=== PATIENT | male | born 1955 | race African-American/Black ===

== ENCOUNTER → 2017-02-21 | Outpatient (CLI) | payer BC, OTHER | LOC: HYPER 07:04 | DX: I87.313 Chronic venous hypertension (idiopathic) with ulcer of bilateral lower extremity (principal); E11.622 Type 2 diabetes mellitus with other skin ulcer; L97.811 Non-pressure chronic ulcer of other part of right lower leg limited to breakdown of skin; L97.821 Non-pressure chronic ulcer of other part of left lower leg limited to breakdown of skin; I89.0 Lymphedema, not elsewhere classified; R60.0 Localized edema; I25.10 Atherosclerotic heart disease of native coronary artery without angina pectoris; E78.5 Hyperlipidemia, unspecified; E11.40 Type 2 diabetes mellitus with diabetic neuropathy, unspecified; E11.42 Type 2 diabetes mellitus with diabetic polyneuropathy; M06.9 Rheumatoid arthritis, unspecified; M19.90 Unspecified osteoarthritis, unspecified site; Z86.14 Personal history of Methicillin resistant Staphylococcus aureus infection ==

== ENCOUNTER → 2017-03-07 | Outpatient (CLI) | payer BC, OTHER | LOC: HYPER 07:08 | DX: E11.622 Type 2 diabetes mellitus with other skin ulcer (principal); I87.313 Chronic venous hypertension (idiopathic) with ulcer of bilateral lower extremity; L97.821 Non-pressure chronic ulcer of other part of left lower leg limited to breakdown of skin; L97.811 Non-pressure chronic ulcer of other part of right lower leg limited to breakdown of skin; I89.0 Lymphedema, not elsewhere classified; I25.10 Atherosclerotic heart disease of native coronary artery without angina pectoris; E78.5 Hyperlipidemia, unspecified; E11.40 Type 2 diabetes mellitus with diabetic neuropathy, unspecified; Z86.14 Personal history of Methicillin resistant Staphylococcus aureus infection; M06.9 Rheumatoid arthritis, unspecified; M19.90 Unspecified osteoarthritis, unspecified site ==

== ENCOUNTER 2017-03-28 06:41 | Inpatient (IN) | payer BC, OTHER ==
[~2017-03-28] VITALS: Ht 190.5 cm; Wt 121.1 kg
--- NOTE | ~2017-03-28 | HC ---
[facility] [place] [address] CONSULTATION Name: MARIA ELENA SANTOS [facility] Room #: 441-P ADM IN M.R.#: [id number] Admission: 03/28/17 Attend Phys: Izabella Amaya Discharge: Date of : 59 Report #: [id number] THIS REPORT FOR: //name// CC: Izabella Hickey DATE OF SERVICE: 03/29/2017 PERSONAL PHYSICIAN: Dr. Milo Galaviz. CHIEF COMPLAINT: Right lower extremity ulceration with cellulitis. HISTORY OF PRESENT ILLNESS: This is a 61-year-old black male who I have been following in the wound center for the past several weeks for chronic venous stasis ulcer over 4 years duration. The patient was initially started under my care approximately 2 months ago when he was at [facility]. The patient was seen approximately 3 weeks ago in the wound clinic and the ulceration on his right leg was doing markedly better. Unfortunately, the patient states in the past week, he noticed increased swelling, redness, warmth and pain in the ulceration. The patient did not contact our office to let us know that this was occurring. The patient states that he just continued to do the dressing changes as directed and showed up in the clinic yesterday afternoon with a cellulitic right leg, exquisitely tender and swollen. The patient was admitted from the clinic to the hospital for IV antibiotics, aggressive compression and elevation of the leg. PAST MEDICAL HISTORY: Significant for: 1. Chronic ulceration of the right lower extremity. 2. Chronic venous insufficiency. 3. History of MRSA infection. 4. History of pancreatitis, hypertension, hernia, gastroesophageal reflux disease, peripheral neuropathy. DRUG ALLERGIES: NEOMYCIN. CURRENT MEDICATIONS: Multiple, I reviewed the patient's medication list. SOCIAL HISTORY: The patient has never smoked. Drank heavily up until approximately 7 years ago. FAMILY HISTORY: Not pertinent to current medical condition. REVIEW OF SYSTEMS: CONSTITUTIONAL: The patient denies fevers, but has had chills over the past 2 to 3 days. [facility] [address] [place] [address] CONSULTATION Name: MARIA ELENA SANTOS [facility] Room #: 441-[facility] IN .R.#: [id number] Admission: 03/28/17 Attend Phys: Izabella Amaya Discharge: Date of : 59 Report #: [id number] NEUROLOGIC: The patient overall has generalized weakness, but no isolated weakness in arms or legs. EYES: No complaints. ENT: No complaints. CARDIAC: The patient denies chest pain; palpitations but has chronic lower extremity edema, increased over the past several days. RESPIRATORY: The patient denies shortness breath, cough or wheezes. GASTROINTESTINAL: The patient denies nausea, vomiting, but has decreased appetite. GENITOURINARY: The patient denies urgency or frequency. MUSCULOSKELETAL: The patient has pain in his right lower extremity. SKIN: There is chronic ulceration, right lower extremity consistent with cellulitis. PHYSICAL EXAMINATION: VITAL SIGNS: T-max 36.9, pulse 68, respirations 20, BP 141/63. GENERAL: This is an alert and oriented x 3, pleasant black male who is in [id number]-pu-[id number] distress secondary to pain. HEENT: Normocephalic, atraumatic. Mucous membranes are moist. Pupils are round. Sclerae white. NECK: Without JVD or masses. BACK: Nontender. LUNGS: Clear. HEART: Regular, without murmur. ABDOMEN: Soft, nontender. EXTREMITIES: The patient has 4+ edema in the right lower extremity with a near circumferential ulceration on his right lower extremity just above the ankle with a significant amount of brownish tran slough and minimal granulation tissue. The wound itself has moderate foul odor and is exquisitely tender to palpation. Distal pulses are faint, but this is diminished secondary to the edema. Linda-ulcer itself has increased erythema, warmth and tenderness consistent with cellulitis and fairly significant serosanguineous drainage with mild odor. Evaluation of left lower extremity reveals 2+ edema without any open ulcerations. Bilateral heels are intact. NEUROLOGIC: Cranial nerves 2-12 are grossly intact. Motor and sensory grossly intact. LABORATORY DATA: White count 5.8, hemoglobin 10.7. Albumin 3.0. IMPRESSION: 1. Chronic ulceration, right lower extremity with cellulitis. 2. Chronic venous insufficiency. 3. Chronic bilateral lower extremity edema, right greater than left. 4. Hypertension. 5. Generalized debility. 6. Protein calorie malnutrition -- mild with albumin of 3.0. [address] [address] CONSULTATION Name: MARIA ELENA SANTOS [facility] Room #: 441-P [facility] IN M.R.#: [id number] Admission: 03/28/17 Attend Phys: Izabella Amaya Discharge: Date of : 59 Report #: [id number] PLAN: The patient was admitted for IV antibiotics, IV pain medicines and wound care. I have talked to the patient about doing pulse lavage. He says he would be willing to try that in the next couple of days once the initial pain has resolved. The patient is refusing any type of surgical debridement at this time. We will make sure he maximizes his oral supplementation of protein for healing. We will also consult Infectious Disease for IV antibiotics management as well as consult Physical and Occupational therapy for strengthening. We will continue to follow the patient, continue all his other current medications. By: 1849 0825 Caden Hickey MD /nt
--- NOTE | ~2017-03-28 | HC ---
[facility] [place] [address] CONSULTATION Name: MARIA ELENA SANTOS [facility] Room #: 441-P [facility] IN M.R.#: [id number] Admission: 03/28/17 Attend Phys: Izabella Amaya Discharge: Date of : 59 Report #: [id number] THIS REPORT FOR: //name// CC: Izabella Hickey DATE OF SERVICE: 03/28/2017 INFECTIOUS DISEASE CONSULTATION REASON FOR CONSULTATION: I was asked to evaluate concerning right lower extremity venous stasis ulcer and infection. HISTORY OF PRESENT ILLNESS: The patient was a 61-year-old with history of venous stasis disease, chronic lymphedema with progressive wounds to his right lower extremity. The patient had been hospitalized about 6 weeks ago where he received a prolong course of IV and oral antibiotic therapy along with wound care. After discharge, his legs begun to swell again and was uncontrolled as far as his wound to the right lower extremity. No fever, chills or sweats. No recent antibiotics. He does have a history of MRSA involvement of the wounds. PAST MEDICAL HISTORY: Venous insufficiency, chronic lymphedema, peripheral neuropathy, gout, alcohol abuse, obstructive sleep apnea, rheumatoid arthritis, gastroesophageal reflux, peripheral vascular disease, hernia, hypertension, pancreatitis. FAMILY HISTORY: Noncontributory. SOCIAL HISTORY: Nonsmoker, no significant alcohol currently. REVIEW OF SYSTEMS: Denies any cough, sputum, nausea, vomiting or diarrhea. PHYSICAL EXAMINATION: VITAL SIGNS: Afebrile and hemodynamically stable. GENERAL: He was alert and cooperative. HEENT: Unremarkable. EYES: Unremarkable. MOUTH: Unremarkable. NECK: Supple. LUNGS: Clear. HEART: Regular. ABDOMEN: Soft and nontender. EXTREMITIES: He had significant lower extremity edema, right greater than left. Circumferential right lower extremity shallow ulcerations consistent with venous stasis disease. He is hypersensate in both lower extremities below the [facility] [address] [place] [address] CONSULTATION Name: MARIA ELENA SANTOS [facility] Room #: 441-P [facility] IN [facility].#: [id number] Admission: 03/28/17 Attend Phys: Izabella Amaya Discharge: Date of : 59 Report #: [id number] knee, right greater than left. Chronic lymphedema changes in the right foot. LABORATORY STUDIES: Urinalysis was unremarkable. Other laboratory is yet pending. Wound culture and blood cultures are pending. IMPRESSION: A 61-year-old with chronic lymphedema and venous stasis ulcers secondarily infected. PLAN: Recommend broad antibiotic coverage pending culture results. Await laboratory studies. Aggressive lymphedema care with diuretics, elevation of his right lower extremity and appropriate compression. He will continue wound care outlined by the wound care service. <ELECTRONICALLY SIGNED> By: Benigno Galaviz MD 03/29/17 1858 1619 [id number] Benigno Galaviz MD /nt
[2017-03-28 13:15] VITALS: BP 159/74
[2017-03-28 15:05] VITALS: BP 151/69
[2017-03-28] MEDS ORDERED: IRON325 PO (15:08)
[2017-03-28] MEDS ORDERED: PROTONIX40 M1 PO (15:08)
[2017-03-28] MEDS ORDERED: ANTIFUNGAL C14.18 GM TOP (15:08)
[2017-03-28] MEDS ORDERED: PROBIOTIC1 EAC1 PO (15:09)
[2017-03-28] MEDS ORDERED: CARISOPRODOL 3350 MG PO (15:10)
[2017-03-28] MEDS ORDERED: POTASSIUM20 PO (15:10)
[2017-03-28] MEDS ORDERED: OXYCONTIN20 M1 PO (15:11)
[2017-03-28] MEDS ORDERED: PERCOCET 10-321 EACH PO (15:12)
[2017-03-28] MEDS ORDERED: FLONASE 0.05%50 MCG NASAL (15:13)
[2017-03-28] MEDS ORDERED: DEMADEX20 MG PO (15:13)
[2017-03-28] MEDS ORDERED: APAP650 PO (15:14)
[2017-03-28] MEDS ORDERED: TRIAMCINOLONE A80 G2 TOP (15:14)
[2017-03-28] MEDS ORDERED: NYSTOP TOP (15:16)
[2017-03-28] MEDS ORDERED: MIRALAX17 GM PO (15:16)
[2017-03-28] MEDS ORDERED: OXYCODONE HCL PO (15:17)
[2017-03-28 16:00] LABS: URINE BILIRUBIN NEGATIVE (Negative); URINE BLOOD NEGATIVE (Negative); URINE COLOR YELLOW; URINE GLUCOSE-RANDOM* NEGATIVE (Negative); URINE KETONES NEGATIVE (Negative); URINE LEUKOCYTES-REFLEX NEGATIVE (Negative); URINE PROTEIN (DIPSTICK) NEGATIVE (Negative); URINE SPECIFIC GRAVITY <= 1.005 (1.003-1.035); URINE UROBILINOGEN 0.2 E.U./dl (0.2-1.0)
[2017-03-28 16:25] LABS: HEMATOCRIT 33.1 % (42.0-52.0); HEMOGLOBIN 11.2 gm/dL (14.0-18.0); MCH 28.6 pg (26.0-34.0); MCHC 33.9 g/dL (28.0-37.0); MCV 84.4 fL (80.0-100.0); RBC 3.92 mil/uL (4.50-6.00); RDW 14.4 % (10.5-14.5); WBC 5.7 thou/uL (4.0-11.0)
[2017-03-28 16:40] LABS: CALCIUM 8.8 mg/dL (8.5-10.1); CREATININE 0.7 mg/dL (0.7-1.3); MAGNESIUM 2.2 mg/dL (1.8-2.4); POTASSIUM 3.8 mmol/L (3.5-5.1); TOTAL BILIRUBIN 0.9 mg/dL (<0.1-1.0); TOTAL PROTEIN 8.7 g/dL (6.4-8.2)
[2017-03-28 20:25] VITALS: BP 119/49
[2017-03-29 05:00] VITALS: BP 141/64
[2017-03-29 08:27] VITALS: BP 141/63
[2017-03-29 11:34] LABS: HEMOGLOBIN 10.7 gm/dL (14.0-18.0); MCHC 34.5 g/dL (28.0-37.0); MCV 84.1 fL (80.0-100.0); RBC 3.69 mil/uL (4.50-6.00); RDW 14.5 % (10.5-14.5); WBC 5.8 thou/uL (4.0-11.0)
[2017-03-29 11:48] LABS: CALCIUM 8.6 mg/dL (8.5-10.1); CREATININE 0.8 mg/dL (0.7-1.3)
[2017-03-29 19:44] VITALS: BP 1419/65; BP 149/65
[2017-03-30 04:07] VITALS: BP 144/74
[2017-03-30 07:16] VITALS: BP 134/61
[2017-03-30 15:36] VITALS: BP 148/75
[2017-03-30 18:07] VITALS: BP 148/75
[2017-03-30 20:19] VITALS: BP 176/84
[2017-03-31 05:44] VITALS: BP 137/59
[2017-03-31 08:00] VITALS: BP 138/67
[2017-03-31 16:00] VITALS: BP 121/63
[2017-03-31 20:46] VITALS: BP 133/49
[2017-04-01] VITALS (10 sets, daily range): BP systolic 123–153; BP diastolic 58–78
[2017-04-01 09:19] LABS: HEMATOCRIT 30.2 % (42.0-52.0); HEMOGLOBIN 10.5 gm/dL (14.0-18.0); MCH 29.1 pg (26.0-34.0); MCHC 34.8 g/dL (28.0-37.0); MCV 83.4 fL (80.0-100.0); RBC 3.62 mil/uL (4.50-6.00); RDW 14.3 % (10.5-14.5); WBC 3.9 thou/uL (4.0-11.0)
[2017-04-01 09:34] LABS: CALCIUM 8.5 mg/dL (8.5-10.1); CREATININE 0.7 mg/dL (0.7-1.3); POTASSIUM 3.8 mmol/L (3.5-5.1)
[2017-04-02 04:25] VITALS: BP 137/63
[2017-04-02 08:00] VITALS: BP 166/65
[2017-04-02 16:00] VITALS: BP 141/61
[2017-04-02 19:37] VITALS: BP 141/53
[2017-04-03 04:16] VITALS: BP 133/67
[2017-04-03 08:00] VITALS: BP 149/73
[2017-04-03 16:00] VITALS: BP 134/55
[2017-04-03 20:55] VITALS: BP 122/62
[2017-04-04 06:00] VITALS: BP 154/68
[2017-04-04 12:00] VITALS: BP 144/75
[2017-04-04 16:00] VITALS: BP 133/66
[2017-04-04 20:40] VITALS: BP 113/60
[2017-04-05 06:00] VITALS: BP 142/65
[2017-04-05 08:12] VITALS: BP 147/86
[2017-04-05 16:01] VITALS: BP 134/59
[2017-04-05 20:15] VITALS: BP 134/78
[2017-04-06 05:30] VITALS: BP 152/70
[2017-04-06 08:07] VITALS: BP 137/69
[2017-04-06] MEDS ORDERED: ZOSYN 3.3753.375 GM IV (12:46)
== END 2017-04-06 16:20 | DRG 300 ==
LOC: HYPER 06:41 → 4S 12:26 → HYPER 16:28 → 4S 04-06 16:20
PROVIDERS: Internal Medicine; Nurse Practitioner
DX: I73.9 Peripheral vascular disease, unspecified (principal); L97.819 Non-pressure chronic ulcer of other part of right lower leg with unspecified severity; L03.115 Cellulitis of right lower limb; E44.1 Mild protein-calorie malnutrition; G47.33 Obstructive sleep apnea (adult) (pediatric); M06.9 Rheumatoid arthritis, unspecified; K21.9 Gastro-esophageal reflux disease without esophagitis; I10 Essential (primary) hypertension; M10.9 Gout, unspecified; G62.9 Polyneuropathy, unspecified; M19.90 Unspecified osteoarthritis, unspecified site; I87.2 Venous insufficiency (chronic) (peripheral); Z68.33 Body mass index [BMI] 33.0-33.9, adult; Z86.14 Personal history of Methicillin resistant Staphylococcus aureus infection; Z88.1 Allergy status to other antibiotic agents; Z88.8 Allergy status to other drugs, medicaments and biological substances
CPT/HCPCS: 10102

== ENCOUNTER → 2017-05-05 | Outpatient (CLI) | payer BC, OTHER ==
[~2017-05-05] MED LIST: ANTIFUNGAL C14.18 GM TOP; APAP650 PO; CARISOPRODOL 3350 MG PO; DEMADEX20 MG PO; FLONASE 0.05%50 MCG NASAL; IRON325 PO; MIRALAX17 GM PO; NYSTOP TOP; OXYCODONE HCL PO; OXYCONTIN20 M1 PO; PERCOCET 10-321 EACH PO; POTASSIUM20 PO; PROBIOTIC1 EAC1 PO; PROTONIX40 M1 PO; TRIAMCINOLONE A80 G2 TOP; ZOSYN 3.3753.375 GM IV
== END ==
LOC: HYPER 06:54
DX: I87.311 Chronic venous hypertension (idiopathic) with ulcer of right lower extremity (principal); L97.811 Non-pressure chronic ulcer of other part of right lower leg limited to breakdown of skin; E11.622 Type 2 diabetes mellitus with other skin ulcer; I89.0 Lymphedema, not elsewhere classified; I25.10 Atherosclerotic heart disease of native coronary artery without angina pectoris; E78.5 Hyperlipidemia, unspecified; E11.40 Type 2 diabetes mellitus with diabetic neuropathy, unspecified; Z86.14 Personal history of Methicillin resistant Staphylococcus aureus infection

== ENCOUNTER → 2017-06-13 | Outpatient (CLI) | payer BC, OTHER | LOC: HYPER 06:42 | DX: I87.311 Chronic venous hypertension (idiopathic) with ulcer of right lower extremity (principal); L97.811 Non-pressure chronic ulcer of other part of right lower leg limited to breakdown of skin; I89.0 Lymphedema, not elsewhere classified; I25.10 Atherosclerotic heart disease of native coronary artery without angina pectoris; E78.5 Hyperlipidemia, unspecified; E11.42 Type 2 diabetes mellitus with diabetic polyneuropathy; E11.622 Type 2 diabetes mellitus with other skin ulcer; M19.90 Unspecified osteoarthritis, unspecified site; M10.9 Gout, unspecified; M06.9 Rheumatoid arthritis, unspecified ==

== ENCOUNTER → 2017-07-12 | Outpatient (CLI) | payer BC, OTHER ==
[~2017-07-12] MED LIST changes: +ABSORBASE TOP; +CIPROFLOXACIN750 MG PO; +GENTAMICIN 0.15 CR TOP; +MEROPENEM 1 GM V1 GM IV; +OXYCODONE HCL 55 MG PO; +SINGULAIR 10 MG10 M1 PO; +VITAMINC500 PO; +VOLTAREN GEL 1100 G2 TOP; +ZOSYN 3.373.375 GM/1 IV; +ZOSYN 4/0.5 GM4.5 G2 IVPB
== END ==
LOC: HYPER 06:57
DX: I87.311 Chronic venous hypertension (idiopathic) with ulcer of right lower extremity (principal); E11.622 Type 2 diabetes mellitus with other skin ulcer; L97.811 Non-pressure chronic ulcer of other part of right lower leg limited to breakdown of skin; I89.0 Lymphedema, not elsewhere classified; I25.10 Atherosclerotic heart disease of native coronary artery without angina pectoris; E78.5 Hyperlipidemia, unspecified; E11.42 Type 2 diabetes mellitus with diabetic polyneuropathy; M19.90 Unspecified osteoarthritis, unspecified site; M06.9 Rheumatoid arthritis, unspecified

== ENCOUNTER 2017-07-26 17:34 | Emergency (ER) | payer BC, OTHER ==
[~2017-07-26] VITALS: Ht 190.5 cm; Wt 121.1 kg
[~2017-07-26 17:34] MED LIST changes: -ABSORBASE TOP; -CIPROFLOXACIN750 MG PO; -DEMADEX20 MG PO; -GENTAMICIN 0.15 CR TOP; -MEROPENEM 1 GM V1 GM IV; -OXYCODONE HCL 55 MG PO; -SINGULAIR 10 MG10 M1 PO; -VITAMINC500 PO; -VOLTAREN GEL 1100 G2 TOP; -ZOSYN 3.373.375 GM/1 IV; -ZOSYN 4/0.5 GM4.5 G2 IVPB
[2017-07-26 18:56] LABS: ABSOLUTE NEUTROPHILS 4.1 thou/uL (1.4-8.2); BASOPHILS 0.5 % (0.0-2.0); EOSINOPHILS 2.3 % (0.0-3.0); HEMATOCRIT 31.5 % (42.0-52.0); HEMOGLOBIN 10.7 gm/dL (14.0-18.0); LYMPHOCYTES 18.7 % (24.0-44.0); MCH 27.8 pg (26.0-34.0); MCHC 34.1 g/dL (28.0-37.0); MCV 81.5 fL (80.0-100.0); PLATELET COUNT 199 thou/uL (150-400); POLYS 69.5 % (36.0-66.0); RBC 3.87 mil/uL (4.50-6.00); RDW 14.8 % (10.5-14.5); WBC 5.9 thou/uL (4.0-11.0)
[2017-07-26 19:07] LABS: CALCIUM 8.7 mg/dL (8.5-10.1); CREATININE 0.7 mg/dL (0.7-1.3)
[2017-07-26 23:40] VITALS: BP 126/70
[2018-01-03] MEDS ORDERED: MEROPENEM 1 GM V1 GM IV (17:20)
== END 2017-07-26 23:42 | disposition home or self-care (01) ==
LOC: ER 17:34
PROVIDERS: Physician Assistant
DX: S81.801A Unspecified open wound, right lower leg, initial encounter (principal); I89.0 Lymphedema, not elsewhere classified; I10 Essential (primary) hypertension; I73.9 Peripheral vascular disease, unspecified; K21.9 Gastro-esophageal reflux disease without esophagitis; M06.9 Rheumatoid arthritis, unspecified; G89.29 Other chronic pain; M19.90 Unspecified osteoarthritis, unspecified site; Z86.14 Personal history of Methicillin resistant Staphylococcus aureus infection; Z88.1 Allergy status to other antibiotic agents; Z88.8 Allergy status to other drugs, medicaments and biological substances; X58.XXXA Exposure to other specified factors, initial encounter; Y93.89 Activity, other specified; Y92.89 Other specified places as the place of occurrence of the external cause; Y99.8 Other external cause status

== ENCOUNTER → 2017-08-03 | Outpatient (CLI) | payer BC, OTHER ==
[~2017-08-03] MED LIST changes: +ABSORBASE TOP; +CIPROFLOXACIN750 MG PO; +DEMADEX20 MG PO; +GENTAMICIN 0.15 CR TOP; +MEROPENEM 1 GM V1 GM IV; +OXYCODONE HCL 55 MG PO; +SINGULAIR 10 MG10 M1 PO; +VITAMINC500 PO; +VOLTAREN GEL 1100 G2 TOP; +ZOSYN 3.373.375 GM/1 IV; +ZOSYN 4/0.5 GM4.5 G2 IVPB
== END ==
LOC: HYPER 06:55
DX: I87.311 Chronic venous hypertension (idiopathic) with ulcer of right lower extremity (principal); E11.622 Type 2 diabetes mellitus with other skin ulcer; L97.811 Non-pressure chronic ulcer of other part of right lower leg limited to breakdown of skin; I89.0 Lymphedema, not elsewhere classified; I25.10 Atherosclerotic heart disease of native coronary artery without angina pectoris; E78.5 Hyperlipidemia, unspecified; E11.42 Type 2 diabetes mellitus with diabetic polyneuropathy; M19.90 Unspecified osteoarthritis, unspecified site; M06.9 Rheumatoid arthritis, unspecified

== ENCOUNTER → 2017-08-29 | Outpatient (CLI) | payer BC, OTHER | LOC: HYPER 08-08 09:04 | DX: I87.311 Chronic venous hypertension (idiopathic) with ulcer of right lower extremity (principal); E11.622 Type 2 diabetes mellitus with other skin ulcer; L97.811 Non-pressure chronic ulcer of other part of right lower leg limited to breakdown of skin; I89.0 Lymphedema, not elsewhere classified; I25.10 Atherosclerotic heart disease of native coronary artery without angina pectoris; E78.5 Hyperlipidemia, unspecified; E11.42 Type 2 diabetes mellitus with diabetic polyneuropathy; M19.90 Unspecified osteoarthritis, unspecified site; M06.9 Rheumatoid arthritis, unspecified ==

== ENCOUNTER 2017-09-02 15:08 | Inpatient (IN) | payer BC, OTHER ==
[~2017-09-02] VITALS: Ht 182.9 cm; Wt 118.9 kg
--- NOTE | ~2017-09-02 | HC ---
[facility] [place] [address] CONSULTATION Name: MARIA ELENA SANTOS [facility] Room #: 433-I ADM IN M.R.#: [id number] Admission: 09/02/17 Attend Phys: Shelby Wasserman MD Discharge: Date of : 59 Report #: [id number] THIS REPORT FOR: //name// CC: Donte Amaya NO PCP Shelby Partidahens DATE OF SERVICE: 09/03/2017 ATTENDING PHYSICIAN: Shelby Wasserman MD. REASON FOR CONSULTATION: Right lower extremity skin and soft tissue infection with cellulitis, has venous stasis insufficiency, ulcers. HISTORY OF PRESENT ILLNESS: Chart reviewed, the patient examined. This is a 61-year-old gentleman with longstanding history of lower extremity edema. This is probably multifactorial including venous stasis insufficiency complicated by dermatitis, repeated ulcers, chronic lymphedema, in particular on the right, who is followed in the wound care center, had a hospitalization last fall that required 9 days, has been noted over the course of the last few days increasing inflammation noted. It is not clear if he has fevers. Denies significant pulmonary or gastrointestinal related complaints. On review, he has had polymicrobial growth, previously available cultures including multiple resistant organisms. At this point, he is not encephalopathic and nontoxic. ALLERGIES: COMPONENTS OF NEOSPORIN WELL SILVADENE. CURRENT MEDICINES: Include montelukast, torsemide, pantoprazole, oxycodone, insulin, p.r.n. analgesics, antiemetics. PAST MEDICAL HISTORY: History of, as noted above, peripheral neuropathy, gout, osteoarthritis, rheumatoid arthritis, chronic pain syndrome, reflux, peripheral vascular disease, history of MRSA, hypertension, pancreatitis. SOCIAL HISTORY: Nonsmoker. Former ethanol. FAMILY HISTORY: Noncontributory. REVIEW OF SYSTEMS: As above. PHYSICAL EXAMINATION: GENERAL: Pleasant, alert, cooperative, in gils-gk-qwqjzojl distress. HEENT: Unremarkable. NECK: Supple. [facility] [address] [place] [address] CONSULTATION Name: MARIA ELENA SANTOS [facility] IN ..#: [id number] Admission: 09/02/17 Attend Phys: Shelby Wasserman MD Discharge: Date of : 59 Report #: [id number] LUNGS: Few scattered crackles at the bases. HEART: Regular, and the patient does have a systolic murmur. ABDOMEN: Soft, nontender, nondistended. EXTREMITIES: Right lower extremity has clinical appearance of lymphedema, chronic venous stasis insufficiency. He has got a dressing in place, marked edema. GENITOURINARY AND RECTAL: Deferred. LABORATORY DATA: Urinalysis unremarkable. Electrolytes: Sodium 134, potassium 3.6, chloride 90, bicarbonate is 30, BUN and creatinine 9 and 0.8, anion gap of 6, glucose of 105. LFTs unremarkable. Total protein of Albumin of 2.9, estimated GFR of 120. White count of 5.0, H and H 11.6 and 35.0, platelets of 231. PT of 12.5, INR 1.2. ASSESSMENT: Right lower extremity skin and soft tissue infection with wounds, cellulitis. We will continue empiric antimicrobial therapy. He notes there was culture collected as an outpatient, we will try to obtain that result. has been on antibiotics, would expect more resistant organisms. Continue wound care as prescribed by Dr. Carney, may need additional imaging studies. We will check a sed rate. <ELECTRONICALLY SIGNED> By: Darren Han MD 09/03/17 0918 0713 0735 Darren Han MD /nt
[~2017-09-02 15:08] MED LIST changes: -ABSORBASE TOP; -CIPROFLOXACIN750 MG PO; -DEMADEX20 MG PO; -GENTAMICIN 0.15 CR TOP; -MEROPENEM 1 GM V1 GM IV; -OXYCODONE HCL 55 MG PO; -SINGULAIR 10 MG10 M1 PO; -VITAMINC500 PO; -VOLTAREN GEL 1100 G2 TOP; -ZOSYN 3.373.375 GM/1 IV; -ZOSYN 4/0.5 GM4.5 G2 IVPB
[2017-09-02 17:29] LABS: HEMOGLOBIN 11.6 gm/dL (14.0-18.0); MCHC 33.2 g/dL (28.0-37.0); MCV 81.4 fL (80.0-100.0); RBC 4.3 mil/uL (4.50-6.00); RDW 14.9 % (10.5-14.5)
[2017-09-02 17:38] VITALS: BP 140/65
[2017-09-02 17:45] LABS: INR 1.2; PROTIME 12.5 Seconds (9.3-11.4)
[2017-09-02 17:46] LABS: CALCIUM 9.1 mg/dL (8.5-10.1); CREATININE 0.8 mg/dL (0.7-1.3); POTASSIUM 3.6 mmol/L (3.5-5.1)
[2017-09-02 17:52] LABS: ALBUMIN 2.9 g/dL (3.4-5.0); TOTAL BILIRUBIN 0.7 mg/dL (<0.1-1.0); TOTAL PROTEIN 8.8 g/dL (6.4-8.2)
[2017-09-02 19:22] VITALS: BP 144/64
[2017-09-02 19:30] VITALS: BP 124/57
[2017-09-02 20:46] LABS: URINE BILIRUBIN NEGATIVE (Negative); URINE BLOOD NEGATIVE (Negative); URINE CLARITY CLEAR; URINE COLOR YELLOW; URINE GLUCOSE-RANDOM* NEGATIVE (Negative); URINE KETONES NEGATIVE (Negative); URINE LEUKOCYTES NEGATIVE (Negative); URINE NITRITE NEGATIVE (Negative); URINE PROTEIN (DIPSTICK) NEGATIVE (Negative); URINE UROBILINOGEN 0.2 E.U./dl (0.2-1.0)
[2017-09-02] MEDS ORDERED: OXYCODONE HCL 55 MG PO (20:57)
[2017-09-02] MEDS ORDERED: ABSORBASE TOP (20:59)
[2017-09-02] MEDS ORDERED: SINGULAIR 10 MG10 M1 PO (21:01)
[2017-09-02] MEDS ORDERED: VITAMINC500 PO (21:01)
[2017-09-02 23:53] VITALS: BP 136/64
[2017-09-03 04:39] VITALS: BP 136/66
[2017-09-03 07:14] VITALS: BP 134/72
[2017-09-03 12:05] VITALS: BP 134/72
[2017-09-03 16:00] VITALS: BP 136/71
[2017-09-03 19:11] VITALS: BP 122/61
[2017-09-04 05:42] VITALS: BP 136/73
[2017-09-04 08:00] VITALS: BP 138/75
[2017-09-04 15:05] VITALS: BP 136/73
[2017-09-04] MEDS ORDERED: CARISOPRODOL 3350 MG PO (20:02)
[2017-09-04] MEDS ORDERED: VOLTAREN GEL 1100 G2 TOP (20:03)
[2017-09-04 20:17] VITALS: BP 136/55
[2017-09-05 05:12] VITALS: BP 140/68
[2017-09-05 07:10] VITALS: BP 138/77
[2017-09-06 05:41] LABS: HEMATOCRIT 28.7 % (42.0-52.0); HEMOGLOBIN 9.7 gm/dL (14.0-18.0); MCH 26.8 pg (26.0-34.0); MCHC 33.6 g/dL (28.0-37.0); MCV 79.8 fL (80.0-100.0); RBC 3.6 mil/uL (4.50-6.00); RDW 15.1 % (10.5-14.5); WBC 4.1 thou/uL (4.0-11.0)
[2017-09-06 05:51] VITALS: BP 155/90
[2017-09-06] MEDS ORDERED: OXYCONTIN20 M1 PO (10:13)
[2017-09-06] MEDS ORDERED: OXYCODONE HCL 55 MG PO (10:13)
[2017-09-06] MEDS ORDERED: GENTAMICIN 0.15 CR TOP (10:14)
[2017-09-06] MEDS ORDERED: VOLTAREN GEL 1100 G2 TOP (10:15)
[2017-09-06] MEDS ORDERED: ZOSYN 3.373.375 GM/1 IV (10:15)
[2017-09-06 10:20] VITALS: BP 155/90
[2017-09-06 16:27] VITALS: BP 138/71
[2017-09-06 21:14] VITALS: BP 130/75
[2017-09-07 04:00] VITALS: BP 145/66
[2017-09-07 07:48] VITALS: BP 150/87
[2018-01-03] MEDS ORDERED: MEROPENEM 1 GM V1 GM IV (17:20)
== END 2017-09-07 20:13 | DRG 603 ==
LOC: 4S 15:08
PROVIDERS: Hospitalist
PROC: 05HY33Z Insertion of Infusion Device into Upper Vein, Percutaneous Approach (ICD-10-PCS; principal; 2017-09-06)
DX: L03.115 Cellulitis of right lower limb (principal); E44.1 Mild protein-calorie malnutrition; I10 Essential (primary) hypertension; K21.9 Gastro-esophageal reflux disease without esophagitis; G89.29 Other chronic pain; M19.90 Unspecified osteoarthritis, unspecified site; G62.9 Polyneuropathy, unspecified; I73.9 Peripheral vascular disease, unspecified; M10.9 Gout, unspecified; I87.2 Venous insufficiency (chronic) (peripheral); F10.20 Alcohol dependence, uncomplicated; Y90.9 Presence of alcohol in blood, level not specified; Z68.35 Body mass index [BMI] 35.0-35.9, adult; Z88.8 Allergy status to other drugs, medicaments and biological substances
CPT/HCPCS: 10102; 27001

== ENCOUNTER → 2017-09-26 | Outpatient (CLI) | payer BC, OTHER ==
[~2017-09-26] MED LIST changes: +ABSORBASE TOP; +CIPROFLOXACIN750 MG PO; +DEMADEX20 MG PO; +GENTAMICIN 0.15 CR TOP; +MEROPENEM 1 GM V1 GM IV; +OXYCODONE HCL 55 MG PO; +SINGULAIR 10 MG10 M1 PO; +VITAMINC500 PO; +VOLTAREN GEL 1100 G2 TOP; +ZOSYN 3.373.375 GM/1 IV; +ZOSYN 4/0.5 GM4.5 G2 IVPB
== END ==
LOC: HYPER 07:01
DX: E11.622 Type 2 diabetes mellitus with other skin ulcer (principal); I87.311 Chronic venous hypertension (idiopathic) with ulcer of right lower extremity; L97.811 Non-pressure chronic ulcer of other part of right lower leg limited to breakdown of skin; I89.0 Lymphedema, not elsewhere classified; L03.115 Cellulitis of right lower limb; I25.10 Atherosclerotic heart disease of native coronary artery without angina pectoris; E78.5 Hyperlipidemia, unspecified; E11.40 Type 2 diabetes mellitus with diabetic neuropathy, unspecified; M19.90 Unspecified osteoarthritis, unspecified site; M06.9 Rheumatoid arthritis, unspecified; G89.4 Chronic pain syndrome

== ENCOUNTER → 2017-10-31 | Outpatient (CLI) | payer BC, OTHER ==
[~2017-10-31] MED LIST changes: -CIPROFLOXACIN750 MG PO; -MEROPENEM 1 GM V1 GM IV; -ZOSYN 4/0.5 GM4.5 G2 IVPB
== END ==
LOC: HYPER 06:48
DX: E11.622 Type 2 diabetes mellitus with other skin ulcer (principal); I87.311 Chronic venous hypertension (idiopathic) with ulcer of right lower extremity; L97.811 Non-pressure chronic ulcer of other part of right lower leg limited to breakdown of skin; I89.0 Lymphedema, not elsewhere classified; I25.10 Atherosclerotic heart disease of native coronary artery without angina pectoris; E78.5 Hyperlipidemia, unspecified; E11.42 Type 2 diabetes mellitus with diabetic polyneuropathy; M06.9 Rheumatoid arthritis, unspecified; M19.90 Unspecified osteoarthritis, unspecified site

== ENCOUNTER → 2017-11-14 | Outpatient (CLI) | payer BC, OTHER | LOC: HYPER 07:03 | DX: E11.622 Type 2 diabetes mellitus with other skin ulcer (principal); I87.311 Chronic venous hypertension (idiopathic) with ulcer of right lower extremity; L97.811 Non-pressure chronic ulcer of other part of right lower leg limited to breakdown of skin; E11.42 Type 2 diabetes mellitus with diabetic polyneuropathy; I89.0 Lymphedema, not elsewhere classified; I25.10 Atherosclerotic heart disease of native coronary artery without angina pectoris; E78.5 Hyperlipidemia, unspecified; M06.9 Rheumatoid arthritis, unspecified; L03.115 Cellulitis of right lower limb; G89.4 Chronic pain syndrome ==

== ENCOUNTER 2017-11-18 18:20 | Emergency (ER) | payer BC, OTHER ==
[~2017-11-18] VITALS: Ht 190.5 cm; Wt 121.1 kg
[2017-11-18] MEDS ORDERED: CIPROFLOXACIN750 MG PO (18:50)
== END 2017-11-18 19:24 | disposition home or self-care (01) ==
LOC: ER 18:20
DX: Z71.1 Person with feared health complaint in whom no diagnosis is made (principal); F41.9 Anxiety disorder, unspecified; I10 Essential (primary) hypertension; K21.9 Gastro-esophageal reflux disease without esophagitis; M19.90 Unspecified osteoarthritis, unspecified site; M10.9 Gout, unspecified; G47.33 Obstructive sleep apnea (adult) (pediatric); Z88.1 Allergy status to other antibiotic agents

== ENCOUNTER → 2017-11-28 | Outpatient (CLI) | payer BC, OTHER ==
[~2017-11-28] MED LIST changes: +CIPROFLOXACIN750 MG PO
== END ==
LOC: HYPER 06:58
DX: E11.622 Type 2 diabetes mellitus with other skin ulcer (principal); I87.311 Chronic venous hypertension (idiopathic) with ulcer of right lower extremity; L97.811 Non-pressure chronic ulcer of other part of right lower leg limited to breakdown of skin; I89.0 Lymphedema, not elsewhere classified; I25.10 Atherosclerotic heart disease of native coronary artery without angina pectoris; E78.5 Hyperlipidemia, unspecified; E11.42 Type 2 diabetes mellitus with diabetic polyneuropathy; M19.90 Unspecified osteoarthritis, unspecified site; M06.9 Rheumatoid arthritis, unspecified

== ENCOUNTER 2017-12-26 12:08 | Inpatient (IN) | payer BC, OTHER ==
[~2017-12-26] VITALS: Ht 190.5 cm; Wt 118.8 kg
--- NOTE | ~2017-12-26 | HC ---
[facility] [place] [address] CONSULTATION Name: MARIA ELENA SANTOS Room #: 450-P [facility] IN M.R.#: [id number] Admission: 12/26/17 Attend Phys: Jeevan Catalan MD Discharge: Date of : 59 Report #: [id number] THIS REPORT FOR: //name// CC: Jeevan Romero DATE OF SERVICE: 12/27/2017 REASON FOR CONSULTATION: I was asked to evaluate concerning complicated right lower extremity wound infection. HISTORY OF PRESENT ILLNESS: The patient was a 62-year-old with chronic venous stasis disease. He has had nonhealing wound to his right lower extremity. He has been on both inpatient and outpatient antibiotic therapy. Most recently, has been on ciprofloxacin. Prior to that, was on daptomycin and cefepime. He continues with a right upper extremity PICC catheter in place. Last week, he was switched to penicillin and Keflex due to most recent culture from 12/12/2017 showing Pseudomonas aeruginosa and Enterococcus faecalis. These organisms were fully susceptible except for intermediate resistance to quinolones. He was on ciprofloxacin and reported pruritus. He presents to the Emergency Room because he was not happy with his care and he thought his wound was worsening. The patient denies any fever, chills or sweats. Has a moderate amount of pain in the right wound. He has chronic lymphedema. Previous cultures of the wound had shown MRSA and achromobacter. PAST MEDICAL HISTORY: Pancreatitis, hypertension, hernia, peripheral vascular disease, gastroesophageal reflux, rheumatoid arthritis, chronic pain syndrome, alcoholism, peripheral neuropathy, gout, venous insufficiency, chronic lymphedema, right lower extremity, obstructive sleep apnea. MEDICATIONS: Included Protonix, Tylenol, Singulair, Demadex, potassium. ALLERGIES: NEOSPORIN, LYRICA, SILVADENE. FAMILY HISTORY: Noncontributory. SOCIAL HISTORY: Nonsmoker. No current alcohol use. REVIEW OF SYSTEMS: No cardiopulmonary, GI or complaints. PHYSICAL EXAMINATION: VITAL SIGNS: He is afebrile, hemodynamically stable. Right upper extremity PICC was unremarkable. CHEST: Clear. HEART: Regular. [facility] [address] [place] [address] CONSULTATION Name: MARIA ELENA SANTOS [facility] Room #: 450-[facility] IN M.R.#: [id number] Admission: 12/26/17 Attend Phys: Jeevan Catalan MD Discharge: Date of : 59 Report #: [id number] ABDOMEN: Soft and nontender. EXTREMITIES: Right lower extremity had 3+ lymphedema from groin to toes. Circumferential wound to the right lower leg. Surrounding erythema. Moderate drainage, serous in nature. LABORATORY STUDIES: Hemoglobin 10, WBC 5.6, platelet count 181,000. Sodium 132, potassium 3.8, bicarbonate 30, creatinine 0.7. Liver function test normal. Albumin at 2.7. Cultures as noted above. Chest x-ray, no acute change. IMPRESSION: Chronic lymphedema, right lower extremity with chronic venous stasis wound, secondarily infected with Pseudomonas and Enterococcus. Recommend continuing antibiotic coverage with Zosyn. We will arrange outpatient therapy for home. Due to the complex nature of this presentation and the patient's compliance issues, we will plan a CADD pump if at all possible. We will then reevaluate on a weekly basis in the outpatient clinic. Anticipate 2-3 weeks of antibiotic therapy. <ELECTRONICALLY SIGNED> By: Benigno Galaviz MD 12/28/17 1000 1759 2300 Benigno Galaviz MD /nt
--- NOTE | ~2017-12-26 | HC ---
[facility] [place] [address] CONSULTATION Name: MARIA ELENA SANTOS [facility] Room #: 450-P [facility] IN M.R.#: [id number] Admission: 12/26/17 Attend Phys: Jeevan Catalan MD Discharge: 12/28/17 Date of : 59 Report #: [id number] THIS REPORT FOR: //name// CC: Jeevan Romero DATE OF SERVICE: 12/26/2017 WOUND CARE CONSULTATION REASON FOR ADMISSION: Chronic lymphedema with venous stasis ulceration of right lower leg with increasing pain of infected open wound of right leg. Patient of Dr. Caden Hickey. HISTORY OF PRESENT ILLNESS: The patient is a 62-year-old gentleman, the patient very well known to Dr. Caden Hickey over care over several years. This gentleman has chronic lymphedema of the right lower extremity with underlying venous stasis and peripheral vascular disease. He has had a large open wound which has been nonhealing over many months and years. This has been infected and at home he was on Cipro, daptomycin and cefepime. The patient was not tolerating the antibiotics. He had a PICC line placed. The patient came to the Emergency Room due to increased pain and drainage from the wound. He was seen by the Emergency Room physician and admitted for IV antibiotics, vancomycin, consultation by the wound care team and consultation by Infectious Disease doctor, Dr. Galaviz. PAST MEDICAL HISTORY: Anxiety, history of MRSA infection in the past, history of lymphedema, peripheral vascular disease, history of pancreatitis, peripheral neuropathy. History of alcoholism, sober since 2010. ALLERGIES: BACITRACIN, NEOMYCIN, SULFA, SILVER SULFADIAZINE, LYRICA, POLYMYXIN B. LABORATORY DATA: Creatinine 0.7, albumin 2.7. White blood count 2.6. MEDICATIONS: Include OxyContin, oxycodone, topical gentamicin, Tylenol, Aristocort, Singulair, K-Dur, Demadex. At home, he was getting Cipro, daptomycin, cefepime. PAST SURGICAL HISTORY: Multiple debridements of right lower extremity wound. REVIEW OF SYSTEMS: Noncontributory. PHYSICAL EXAMINATION: GENERAL: Shows a chronically ill appearing 62-year-old male, very talkative with some anxiety. [address] [address] CONSULTATION Name: MARIA ELENA SANTOS [facility] Room #: 450-P [facility] IN M.R.#: [id number] Admission: 12/26/17 Attend Phys: Jeevan Catalan MD Discharge: 12/28/17 Date of : 59 Report #: [id number] HEENT: Mucous membranes are moist. NECK: Supple. LUNGS: Respirations unlabored. HEART: Shows regular rate and rhythm. ABDOMEN: Soft. EXTREMITIES: Show left leg is wrapped. The patient states there is no wound to that leg. Examination of the right leg shows chronic lymphedema of the right lower leg. There is a band-like open wound with exposed subcutaneous tissue of the lower leg occupying 80% of the circumference of the leg with a normal 2 cm strip of skin anteriorly. Wound measures approximately 15 x 10 x 0.3 cm deep and is present as a band-like wound starting in the lateral leg and wrapping around to the medial leg. Wound has a red granulation base with some adherent slough. Wound is tender to the touch. IMPRESSION: 1. Chronic lymphedema, right lower leg. 2. Chronic venous stasis with ulceration of the right leg. 3. Peripheral vascular disease. 4. Peripheral neuropathy. 5. Severe protein-calorie malnutrition. 6. Cellulitis, right leg. PLAN: We will do swab wound culture of the right leg wound. Adaptic and Kerlix dressing. Infectious Disease consultation by Dr. Galaviz for management of his antibiotics. Compression as tolerated based on past history. Dr. Hickey will know this. Intravenous vancomycin. Wound care team will follow. <ELECTRONICALLY SIGNED> By: Eliceo Crook MD 12/28/17 1946 11 0045 Eliceo Crook MD /nt
[~2017-12-26 12:08] MED LIST changes: -DEMADEX20 MG PO
[2017-12-26 12:37] VITALS: BP 122/59
[2017-12-26 13:44] LABS: ABSOLUTE NEUTROPHILS 4.2 thou/uL (1.4-8.2); BASOPHILS 0.6 % (0.0-2.0); EOSINOPHILS 1.4 % (0.0-3.0); HEMATOCRIT 30.3 % (42.0-52.0); LYMPHOCYTES 15.2 % (24.0-44.0); MCV 78.6 fL (80.0-100.0); PLATELET COUNT 181 thou/uL (150-400); POLYS 74.8 % (36.0-66.0); RBC 3.86 mil/uL (4.50-6.00); RDW 15.3 % (10.5-14.5); WBC 5.6 thou/uL (4.0-11.0)
[2017-12-26 13:48] LABS: CALCIUM 8.4 mg/dL (8.5-10.1); CREATININE 0.7 mg/dL (0.7-1.3); POTASSIUM 3.8 mmol/L (3.5-5.1)
[2017-12-26 13:54] LABS: ALBUMIN 2.7 g/dL (3.4-5.0); TOTAL BILIRUBIN 0.6 mg/dL (<0.1-1.0); TOTAL PROTEIN 8.5 g/dL (6.4-8.2)
[2017-12-26 15:01] VITALS: BP 122/59
[2017-12-26 15:25] VITALS: BP 122/59
[2017-12-26] MEDS ORDERED: DEMADEX20 MG PO (15:28)
[2017-12-26] MEDS ORDERED: POTASSIUM20 PO (15:28)
[2017-12-26 19:43] VITALS: BP 167/69
[2017-12-27 00:12] VITALS: BP 138/63
[2017-12-27 03:13] VITALS: BP 122/58
[2017-12-27 08:13] VITALS: BP 130/69
[2017-12-27 16:42] VITALS: BP 126/59
[2017-12-27 20:48] VITALS: BP 133/63
[2017-12-28 03:42] VITALS: BP 126/71
[2017-12-28 07:43] VITALS: BP 136/69
[2017-12-28] MEDS ORDERED: ZOSYN 3.373.375 GM/1 IV (13:47)
[2017-12-28 14:07] VITALS: BP 136/69
[2017-12-28 14:22] VITALS: BP 136/69
[2017-12-28] MEDS ORDERED: ZOSYN 4/0.5 GM4.5 G2 IVPB (16:23)
== END 2017-12-28 15:37 | disposition home health service (06) | DRG 602 ==
LOC: ER 12:08 → 4W 14:22 → EROBS 14:22 → 4W 15:27 → ENTRNSPT 12-28 14:50 → EDTRNSPTSTS 12-28 14:52 → 4W 12-28 15:37
PROVIDERS: Emergency Medicine
DX: L03.115 Cellulitis of right lower limb (principal); E43 Unspecified severe protein-calorie malnutrition; I10 Essential (primary) hypertension; I73.9 Peripheral vascular disease, unspecified; K21.9 Gastro-esophageal reflux disease without esophagitis; M06.9 Rheumatoid arthritis, unspecified; G89.29 Other chronic pain; M19.90 Unspecified osteoarthritis, unspecified site; G62.9 Polyneuropathy, unspecified; M10.9 Gout, unspecified; G47.33 Obstructive sleep apnea (adult) (pediatric); F10.20 Alcohol dependence, uncomplicated; I89.0 Lymphedema, not elsewhere classified; F41.9 Anxiety disorder, unspecified; I87.8 Other specified disorders of veins; B96.5 Pseudomonas (aeruginosa) (mallei) (pseudomallei) as the cause of diseases classified elsewhere; B95.2 Enterococcus as the cause of diseases classified elsewhere; Z79.899 Other long term (current) drug therapy; Z88.8 Allergy status to other drugs, medicaments and biological substances; Z68.32 Body mass index [BMI] 32.0-32.9, adult
CPT/HCPCS: 10040

== ENCOUNTER → 2018-01-17 | Outpatient (CLI) | payer BC, OTHER ==
[~2018-01-17] MED LIST changes: +DEMADEX20 MG PO; +MEROPENEM 1 GM V1 GM IV; +ZOSYN 4/0.5 GM4.5 G2 IVPB
== END ==
LOC: HYPER 12-27 13:25
DX: I87.311 Chronic venous hypertension (idiopathic) with ulcer of right lower extremity (principal); L97.811 Non-pressure chronic ulcer of other part of right lower leg limited to breakdown of skin; I89.0 Lymphedema, not elsewhere classified; I25.10 Atherosclerotic heart disease of native coronary artery without angina pectoris; E78.5 Hyperlipidemia, unspecified; G89.4 Chronic pain syndrome; M06.9 Rheumatoid arthritis, unspecified; K74.60 Unspecified cirrhosis of liver

== ENCOUNTER → 2018-02-06 | Outpatient (CLI) | payer BC, OTHER | LOC: HYPER 06:52 | DX: E11.622 Type 2 diabetes mellitus with other skin ulcer (principal); I87.311 Chronic venous hypertension (idiopathic) with ulcer of right lower extremity; L97.811 Non-pressure chronic ulcer of other part of right lower leg limited to breakdown of skin; E11.42 Type 2 diabetes mellitus with diabetic polyneuropathy; I89.0 Lymphedema, not elsewhere classified; I10 Essential (primary) hypertension; I25.10 Atherosclerotic heart disease of native coronary artery without angina pectoris; E78.5 Hyperlipidemia, unspecified; M19.90 Unspecified osteoarthritis, unspecified site; G89.4 Chronic pain syndrome; M10.9 Gout, unspecified; M06.9 Rheumatoid arthritis, unspecified ==

== ENCOUNTER 2018-04-04 18:53 | Emergency (ER) | payer BC, OTHER ==
[~2018-04-04] VITALS: Ht 190.5 cm; Wt 118.8 kg
[2018-04-04 19:51] LABS: ABSOLUTE NEUTROPHILS 6.8 thou/uL (1.4-8.2); BASOPHILS 0.4 % (0.0-2.0); EOSINOPHILS 0.5 % (0.0-3.0); HEMATOCRIT 29.1 % (42.0-52.0); HEMOGLOBIN 9.8 gm/dL (14.0-18.0); LYMPHOCYTES 11.6 % (24.0-44.0); MCH 25.8 pg (26.0-34.0); MCHC 33.8 g/dL (28.0-37.0); MCV 76.3 fL (80.0-100.0); MONOCYTES 7.9 % (1.0-8.0); PLATELET COUNT 223 thou/uL (150-400); POLYS 79.6 % (36.0-66.0); RBC 3.81 mil/uL (4.50-6.00); RDW 15.5 % (10.5-14.5); WBC 8.5 thou/uL (4.0-11.0)
[2018-04-04 19:56] LABS: CALCIUM 8.7 mg/dL (8.5-10.1); CREATININE 0.9 mg/dL (0.7-1.3); POTASSIUM 3.9 mmol/L (3.5-5.1)
[2018-04-04 21:19] LABS: URINE BILIRUBIN NEGATIVE (Negative); URINE BLOOD NEGATIVE (Negative); URINE CLARITY CLEAR; URINE COLOR YELLOW; URINE GLUCOSE-RANDOM* NEGATIVE (Negative); URINE KETONES NEGATIVE (Negative); URINE LEUKOCYTES-REFLEX NEGATIVE (Negative); URINE NITRITE-REFLEX NEGATIVE (Negative); URINE PROTEIN (DIPSTICK) NEGATIVE (Negative); URINE SPECIFIC GRAVITY <= 1.005 (1.005-1.035); URINE UROBILINOGEN 0.2 E.U./dl (0.2-1.0)
== END 2018-04-04 23:10 | disposition home or self-care (01) ==
LOC: ER 18:53
PROVIDERS: Emergency Medicine
DX: L97.819 Non-pressure chronic ulcer of other part of right lower leg with unspecified severity (principal); R50.9 Fever, unspecified; I10 Essential (primary) hypertension; I73.9 Peripheral vascular disease, unspecified; K21.9 Gastro-esophageal reflux disease without esophagitis; M06.9 Rheumatoid arthritis, unspecified; M19.90 Unspecified osteoarthritis, unspecified site; G89.4 Chronic pain syndrome; G62.9 Polyneuropathy, unspecified; M10.9 Gout, unspecified; G47.33 Obstructive sleep apnea (adult) (pediatric); Z88.1 Allergy status to other antibiotic agents; Z88.8 Allergy status to other drugs, medicaments and biological substances

== ENCOUNTER → 2018-04-17 | Outpatient (CLI) | payer BC, OTHER | LOC: HYPER 07:02 | DX: E11.622 Type 2 diabetes mellitus with other skin ulcer (principal); I87.311 Chronic venous hypertension (idiopathic) with ulcer of right lower extremity; L97.812 Non-pressure chronic ulcer of other part of right lower leg with fat layer exposed; I89.0 Lymphedema, not elsewhere classified; L84 Corns and callosities; I25.10 Atherosclerotic heart disease of native coronary artery without angina pectoris; E78.5 Hyperlipidemia, unspecified; E11.40 Type 2 diabetes mellitus with diabetic neuropathy, unspecified; G89.4 Chronic pain syndrome; M19.90 Unspecified osteoarthritis, unspecified site; M10.9 Gout, unspecified; M06.9 Rheumatoid arthritis, unspecified ==

== ENCOUNTER → 2018-05-02 | Outpatient (CLI) | payer BC, OTHER | LOC: HYPER 06:52 | DX: E11.622 Type 2 diabetes mellitus with other skin ulcer (principal); I87.311 Chronic venous hypertension (idiopathic) with ulcer of right lower extremity; L97.812 Non-pressure chronic ulcer of other part of right lower leg with fat layer exposed; L84 Corns and callosities; E11.42 Type 2 diabetes mellitus with diabetic polyneuropathy; E78.5 Hyperlipidemia, unspecified; I89.0 Lymphedema, not elsewhere classified; I10 Essential (primary) hypertension; I25.10 Atherosclerotic heart disease of native coronary artery without angina pectoris; G89.4 Chronic pain syndrome; K21.9 Gastro-esophageal reflux disease without esophagitis; K74.60 Unspecified cirrhosis of liver; M19.90 Unspecified osteoarthritis, unspecified site; M10.9 Gout, unspecified; M06.9 Rheumatoid arthritis, unspecified ==

== ENCOUNTER → 2018-05-22 | Outpatient (CLI) | payer BC, OTHER | LOC: HYPER 07:13 | DX: E11.622 Type 2 diabetes mellitus with other skin ulcer (principal); I87.311 Chronic venous hypertension (idiopathic) with ulcer of right lower extremity; L97.812 Non-pressure chronic ulcer of other part of right lower leg with fat layer exposed; L84 Corns and callosities; E11.42 Type 2 diabetes mellitus with diabetic polyneuropathy; E78.5 Hyperlipidemia, unspecified; G89.4 Chronic pain syndrome; I89.0 Lymphedema, not elsewhere classified; I10 Essential (primary) hypertension; I25.10 Atherosclerotic heart disease of native coronary artery without angina pectoris; K74.60 Unspecified cirrhosis of liver; K21.9 Gastro-esophageal reflux disease without esophagitis; M19.90 Unspecified osteoarthritis, unspecified site; M10.9 Gout, unspecified; M06.9 Rheumatoid arthritis, unspecified ==

== ENCOUNTER 2018-05-31 10:56 | Emergency (ER) | payer BC, OTHER ==
[~2018-05-31] VITALS: Ht 188 cm; Wt 118.8 kg
[2018-05-31 12:25] LABS: ABSOLUTE NEUTROPHILS 4.1 thou/uL (1.4-8.2); BASOPHILS 0.7 % (0.0-2.0); EOSINOPHILS 1.7 % (0.0-3.0); HEMATOCRIT 30.2 % (42.0-52.0); HEMOGLOBIN 9.9 gm/dL (14.0-18.0); LYMPHOCYTES 15.5 % (24.0-44.0); MCH 24.8 pg (26.0-34.0); MCV 75.2 fL (80.0-100.0); PLATELET COUNT 205 thou/uL (150-400); POLYS 75.1 % (36.0-66.0); RBC 4.01 mil/uL (4.50-6.00); RDW 15.5 % (10.5-14.5); WBC 5.5 thou/uL (4.0-11.0)
[2018-05-31 12:35] LABS: CALCIUM 8.5 mg/dL (8.5-10.1); CREATININE 0.9 mg/dL (0.7-1.3); POTASSIUM 3.9 mmol/L (3.5-5.1)
[2018-05-31 12:41] LABS: ALBUMIN 2.8 g/dL (3.4-5.0); TOTAL BILIRUBIN 0.5 mg/dL (<0.1-1.0); TOTAL PROTEIN 8.2 g/dL (6.4-8.2)
[2018-05-31] MEDS ORDERED: MOBIC15 MG PO (12:48)
[2018-05-31] MEDS ORDERED: CARISOPRODOL 3350 MG PO (12:48)
[2018-05-31 13:53] VITALS: BP 127/76
== END 2018-05-31 14:33 ==
LOC: ER 10:56
PROVIDERS: Emergency Medicine
DX: L03.115 Cellulitis of right lower limb (principal); L02.415 Cutaneous abscess of right lower limb; I10 Essential (primary) hypertension; K21.9 Gastro-esophageal reflux disease without esophagitis; M19.90 Unspecified osteoarthritis, unspecified site; M10.9 Gout, unspecified; G47.33 Obstructive sleep apnea (adult) (pediatric); Z88.1 Allergy status to other antibiotic agents; Z88.8 Allergy status to other drugs, medicaments and biological substances

== ENCOUNTER 2018-06-19 07:11 | Inpatient (IN) | payer BC, OTHER ==
[~2018-06-19] VITALS: Ht 190.5 cm; Wt 119.6 kg
--- NOTE | ~2018-06-19 | 2DMMODE ---
[facility] [place] [address] 2 D/M-MODE ECHOCARDIOGRAM Name: MARIA ELENA SANTOS [facility] Room #: 209-P [facility] IN ..#: [id number] Admission: 06/19/18 Attend Phys: Jeevan Catalan MD Discharge: Date of : 59 Date of Service: 06/20/18 1157 Report #: [id number] THIS REPORT FOR: //name// APPROVED REPORT Study performed: 06/20/2018 10:54:17 EXAM: Comprehensive 2D, Doppler, and color-flow Echocardiogram Patient Location: Bedside Room #: 209 Status: routine BSA: 2.47 HR: 72 bpm BP: 161/89 mmHg Rhythm: NSR, frequent PVCs Other Information Study Quality: Adequate Technically limited study due to limited mobility and lung artifact. Indications Chest pain, palpitations. Hx: HTN 2D Dimensions RVDd: 41.02 mm IVSd: 9.82 (7-11mm) LVOT Diam: 23.91 (18-24mm) LVDd: 58.21 mm PWd: 10.21 (7-11mm) Ascending Ao: 36.66 (22-36mm) LVDs: 40.16 (25-40mm) Aortic Root: 35.30 mm Volumes Left Atrial Volume (Systole) Single Plane 4CH: 50.61 mL Single Plane 2CH: 57.22 mL LA ESV Index: 24.00 mL/m2 Aortic Valve AoV Peak Ryan.: 1.71 m/s AO Peak Gr.: 11.73 mmHg LVOT Max P.87 mmHg LVOT Max V: 1.21 m/s JANNETH Vmax: 3.17 cm2 Mitral Valve E/A Ratio: 1.2 [facility] [place] [address] 2 D/M-MODE ECHOCARDIOGRAM Name: MARIA ELENA SANTOS [facility] [facility] [place] #: 209-P [facility] IN ..#: [id number] Admission: 06/19/18 Attend Phys: Jeevan Catalan MD Discharge: Date of : 59 Date of Service: 06/20/18 1157 Report #: [id number] MV Decel. Time: 267.09 ms MV E Max Ryan.: 0.98 m/s MV A Ryan.: 0.79 m/s MV PHT: 77.46 ms IVRT: 62.28 ms Pulmonary Valve PV Peak Ryan.: 0.95 m/s PV Peak Gr.: 3.62 mmHg Tricuspid Valve TR Peak Ryan.: 2.57 m/s RAP Estimate: 10.00 mmHg TR Peak Gr.: 26.43 mmHg PA Pressure: 36.00 mmHg Left Ventricle The left ventricle is normal size. There is normal LV segmental wall motion. There is normal left ventricular wall thickness. Left ventricular systolic function is normal. LVEF is 50-55%. Moderate diastolic dysfunction is present (pseudonormal filling). Right Ventricle The right ventricle is normal size. The right ventricular systolic function is normal. Atria The left atrium size is normal. The right atrium size is normal. Aortic Valve The aortic valve is normal in structure. Trace aortic regurgitation. There is no aortic valvular stenosis. Mitral Valve The mitral valve is normal in structure. Trace mitral regurgitation. Tricuspid Valve The tricuspid valve is normal in structure. Trace tricuspid regurgitation. Estimated PAP is 35mmHg. Pulmonic Valve Pulmonic valve is not well visualized. Great Vessels The aortic root is normal in size. The ascending aorta is normal in size. IVC is normal in size and collapses <50% with [facility] [address] [place] [address] 2 D/M-MODE ECHOCARDIOGRAM Name: MARIA ELENA SANTOS [facility] Room #: 209-P [facility] IN ..#: [id number] Admission: 06/19/18 Attend Phys: Jeevan Catalan MD Discharge: Date of : 59 Date of Service: 06/20/18 1157 Report #: [id number] inspiration. Pericardium There is no pericardial effusion. <Conclusion> The left ventricle is normal size. LVEF is 50-55%. The aortic valve is normal in structure. Trace aortic regurgitation. The mitral valve is normal in structure. Trace mitral regurgitation. The tricuspid valve is normal in structure. Trace tricuspid regurgitation. Estimated PAP is 35mmHg. There is no pericardial effusion. <ELECTRONICALLY SIGNED> By: Patrice Rae MD 06/20/18 1157 1157 115 Patrice Rae MD /INF
--- NOTE | ~2018-06-19 | HC ---
[facility] [place] [address] CONSULTATION Name: MARIA ELENA SANTOS [facility] Room #: 209-P [facility] IN M.R.#: [id number] Admission: 06/19/18 Attend Phys: Jeevan Catalan MD Discharge: Date of : 59 Report #: [id number] THIS REPORT FOR: //name// CC: Jeevan Hickey DATE OF SERVICE: 06/20/2018 INFECTIOUS DISEASE CONSULTATION ATTENDING PHYSICIAN: Jeevan Catalan M.D. HISTORY OF PRESENT ILLNESS: A 62-year-old -Thai man, known to me from previous visits in the senior's clinic, who was visited with Dr. Caden Hickey when he complained of some palpitations and discomfort, evaluated by Dr. Rae and scheduled to have a stress test. 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 The organism was recultured at the wound care center and now even resistant to most aminoglycosides. Previously, the patient's Pseudomonas was found to be sensitive to Avycaz (ceftazidime-avibactam) and Zerbaxa (ceftolozane-tazobactam). Currently, the patient is complaining of right leg pain. Denies having had chest pain. DRUG ALLERGIES: PENICILLIN, UNKNOWN REACTION, QUESTION PAIN RIGHT LEG, QUESTION NAUSEA. MORPHINE, NEOMYCIN, BACITRACIN, SILVADENE, POLYMYXIN B AND PREGABALIN. MEDICATIONS: The patient is currently on treatment with oxycodone controlled 20 mg p.o. b.i.d., ondansetron 4 mg IV q.4h. p.r.n., oxycodone immediate release 10 mg q.4h. p.r.n. and morphine sulfate 2 mg IV q.4h. p.r.n. I added meropenem 1 gram IV every 8 hours. 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 Peripheral vascular disease. Pancreatitis. Chronic pain syndrome. Peripheral neuropathy. Alcoholism. SOCIAL HISTORY: See H and P, old records. FAMILY HISTORY: See H and P, old records. REVIEW OF SYSTEMS: As above and see H and P. PHYSICAL EXAMINATION: GENERAL: Well-developed, not-toxic looking man. [address] [address] CONSULTATION Name: MARIA ELENA SANTOS [facility] Room #: 209-P [facility] IN M.R.#: [id number] Admission: 06/19/18 Attend Phys: Jeevan Catalan MD Discharge: Date of : 59 Report #: [id number] VITAL SIGNS: Temperature 99.1, pulse 77, respirations 18 and BP 161/69. Height 6 feet 3 inches, weight 265 pounds. HEENT: Head normocephalic, atraumatic. Pupils reactive. Mouth, missing teeth. NECK: Supple. No thyromegaly. LUNGS: Few basilar crackles. HEART: S1, S2. No gallop or murmur. ABDOMEN: Soft. No masses or megaly. GENITALIA: Rectal exam is deferred. EXTREMITIES: On the right leg, there are a couple of large ulcerations that go to the soft tissues. No exposed bone, with serous drainage on dressings with some fruity type odor. No foul odor. The left leg exam is normal. NEUROLOGIC: Grossly within normal limits. LABORATORY DATA: Sodium 137, potassium 3.8, BUN 8, creatinine 0.7 and calcium 8.1, possibly reflecting hypoalbuminemia, which on 05/31/2018 was 2.8 g/dL. WBC 3700, hemoglobin 9 g/dL and platelets on 193,000; MCV and MCH are on the low side, may represent iron deficiency. During that visit to the Emergency Room on 05/31/2018, the ESR was 79, unchanged compared to previous on 04/04/2018 of 80. The CRP was 36.2 on 05/31/2018 and on 04/04/2018, it was 54.4. MICROBIOLOGY DATA: Culture was repeated on 05/31/2018 and 4+ Pseudomonas aeruginosa again was isolated, sensitive to amikacin, gentamicin, imipenem, meropenem and tobramycin. Culture obtained at Dr. Caden Hickey on 05/22/2018 shows Pseudomonas aeruginosa sensitive only to tobramycin. Obviously, we did not repeat sensitivities again to Zerbaxa or Avycaz on that particular time neither during the ER visit on 05/31/2018. Ultrasound of the carotid arteries revealed some 40% narrowing of the carotid arteries with some carotid atherosclerosis. ASSESSMENT: 1. Palpitations, question etiology. 2. Chronic stasis ulcerations, right leg - infected versus colonized with multiple drug-resistant Pseudomonas aeruginosa. 3. Anemia, possible iron deficiency. 4. Leukopenia, question etiology. 5. Multiple drug allergies and intolerance. 6. Hypoalbuminemia. SUGGESTIONS AND RECOMMENDATIONS: Repeat ESR and CRP. Meropenem 1 gram IV every 8 hours. Proceed with cardiac workup. Doubt very much the patient qualifies for home IV antibiotic at home. I have discussed with this patient previously the fact that healing these ulcerations will be next to impossible. The discussion of amputation was done by other physicians previously and he is not interested in this approach. [address] [address] CONSULTATION Name: MARIA ELENA SANTOS [facility] Room #: 209-P ADM IN M.R.#: [id number] Admission: 06/19/18 Attend Phys: Jeevan Catalan MD Discharge: Date of : 59 Report #: [id number] Catalan, thank you for requesting my suggestions. <ELECTRONICALLY SIGNED> By: Donte Jain MD 06/21/18 1002 1003 [id number] Donte Jain MD /nt
--- NOTE | ~2018-06-19 | HC ---
[facility] [place] [address] CONSULTATION Name: MARIA ELENA SANTOS Room #: 209-P [facility] IN M.R.#: [id number] Admission: 06/19/18 Attend Phys: Jeevan Catalan MD Discharge: Date of : 59 Report #: [id number] THIS REPORT FOR: //name// CC: Jeevan Hickey DATE OF SERVICE: 06/19/2018 HISTORY OF PRESENT ILLNESS: This is a very pleasant 62-year-old male admitted for complaints of palpitations. The patient's consultation is for chest pain, but upon discussion with the patient, he does not have pain, but he feels a sensation of his heart skipping. He does not notice it to be irregular, but just occasional skipped beats. Upon further questioning, he denies orthopnea, PND, syncope or near syncope. He has chronic lower extremity lymphedema with nonhealing wounds being followed by wound care. Upon questioning, he has been fairly sedentary for the last year or so because of this and he is not having any chest tightness, heaviness or fullness. He denies any orthopnea or PND also. He says he is not having any palpitations prior to having increased his pain medicine due to increasing wound pain. He states he is not resting well, not sleeping well based on the pain and nocturia. He has never had a cardiovascular evaluation from an ischemic standpoint. ALLERGIES: LYRICA, SILVADENE, NEOSPORIN AND CIPRO GAVE HIM SOME ITCHING. PAST MEDICAL HISTORY: Significant for: 1. Chronic lower extremity lymphedema with chronic venous insufficiency and nonhealing wound. 2. History of pancreatitis. 3. Hypertension. 4. Peripheral vascular disease. 5. Gastroesophageal reflux disease. 6. History of alcoholism, sober for at least 7 years. 7. Peripheral neuropathy, multifactorial. 8. Chronic pain syndrome. MEDICATIONS: Include oxycodone, diclofenac, montelukast. He states his antibiotics have been held for some time. PAST SURGICAL HISTORY: Significant for wound debridement. REVIEW OF SYSTEMS: Except for the symptoms previously mentioned and those commensurate with comorbid state, the 10-point review of systems is negative. ELECTROCARDIOGRAM: Sinus mechanism. [facility] [address] [place] [address] CONSULTATION Name: MARIA ELENA SANTOS [facility] Room #: 209-P [facility] IN ..#: [id number] Admission: 06/19/18 Attend Phys: Jeevan Catalan MD Discharge: Date of : 59 Report #: [id number] LABORATORY DATA: Noted and reviewed in the chart. PHYSICAL EXAMINATION: GENERAL: Well-developed, obese, male in no acute distress. VITAL SIGNS: Noted and reviewed from the chart. HEENT: Normocephalic, atraumatic. Pupils are equal, round, reactive to light and accommodation. Extraocular muscles are intact. Sclerae and conjunctivae are anicteric. NECK: JVD is normal. Carotid upstrokes are bilaterally symmetrical. No bruits are heard. No thyromegaly. No lymphadenopathy. LUNGS: Clear to auscultation. No wheezes, rhonchi or crackles. No CVA tenderness. CARDIAC: Demonstrates a regular rhythm. Normal first and second heart sounds. No ventricular or atrial gallops, no rubs noted. No murmurs. No lifts or heaves, PMI normal. ABDOMEN: Soft, nontender, nondistended. Normal bowel sounds. EXTREMITIES: Lower extremities demonstrate moderate lymphedema bilaterally. The right leg is covered in dressing. NEUROLOGIC: Cranial nerves 2-12 are grossly normal and symmetrical. PSYCHIATRIC: Alert, oriented with normal affect. SKIN: Warm and dry. IMPRESSION AND PLAN: 1. Palpitations in an individual that has risk factors for ischemic origin. In view of this, I am going to proceed with 2D echo Doppler as well as perfusion scanning to rule out any ischemic origin or any valvular abnormalities. I am not going to make any other changes in recommendation until we get the results of those studies. 2. Visual changes. These appear to be floaters per se, but he has never had his carotid evaluation, so we will get carotid duplexes to rule out any significant carotid artery disease. 3. Hypertension. The patient states his blood pressure has "gotten better" and they took him off his medications. We will need to monitor this very closely to make sure that indeed his blood pressures are controlled and at target. 4. Chronic lower extremity lymphedema with nonhealing wounds as per primary care and wound clinic. 5. Gastroesophageal reflux disease by history. He is already on medications and treatment without any significant symptoms recently. <ELECTRONICALLY SIGNED> By: Patrice Rae MD 06/21/18 0237 03 41 Patrice Rae MD /nt
--- NOTE | ~2018-06-19 | HC ---
[facility] [place] [address] CONSULTATION Name: MARIA ELENA SANTOS Room #: 209-P [facility] IN .R.#: [id number] Admission: 06/19/18 Attend Phys: Jeevan Catalan MD Discharge: Date of : 59 Report #: [id number] THIS REPORT FOR: //name// CC: Jeevan Hickey DATE OF SERVICE: 06/20/2018 CHIEF COMPLAINT: Chronic venous type ulcerations to the right lower extremity. HISTORY OF PRESENT ILLNESS: This is a 62-year-old male patient whom we have followed in the wound clinic for quite some time. He has had recurring/persistent ulceration to his right lower extremity that is often very painful. He was having some possible cardiac issues as well as some increased drainage and pain from his leg and was admitted for further evaluation. We have been asked to see him for continued wound care. PAST MEDICAL HISTORY: The patient's past medical history is positive for longstanding history of venous insufficiency and as well as a history of chronic ulceration and with recurring colonization with pseudomonas. He has a significant history for medical noncompliance as well as chronic pain and narcotic usage. SOCIAL HISTORY: The patient is a" master plasterer." He denies any history of tobacco use or alcohol use. FAMILY HISTORY: Noncontributory. The patient does have a history of alcoholism, but has been sober since 2010. MEDICATIONS: The patient's medications include Protonix, Singulair, Demadex, K-Dur, Aristocort, Soma, Mobic, OxyContin and OxyIR. ALLERGIES: INCLUDE BACITRACIN, NEOMYCIN, PENICILLIN, POLYMYXIN B. PREGABALIN AND SILVER SULFADIAZINE. REVIEW OF SYSTEMS: CONSTITUTIONAL: The patient denies fever, chills or weight loss. NEUROLOGICAL: The patient denies focal weakness, numbness or tingling. EYES: The patient denies visual changes, redness or drainage. ENT: The patient denies earache, nasal drainage or sore throat. CARDIOVASCULAR: The patient does complain of some chest pain and some "skipped beats." He denies diaphoresis. PULMONARY: The patient denies cough or shortness of breath. GASTROINTESTINAL: The patient denies nausea, vomiting, diarrhea, abdominal pain. [address] [address] CONSULTATION Name: MARIA ELENA SANTOS [facility] Room #: 209-P [facility] IN M.R.#: [id number] Admission: 06/19/18 Attend Phys: Jeevan Catalan MD Discharge: Date of : 59 Report #: [id number] ORTHOPEDIC: The patient complains of severe pain, swelling and drainage from his right leg. Other systems in a 14-point review of systems are negative. PHYSICAL EXAMINATION: VITAL SIGNS: At this time include pulse rate of 76, respiratory rate of 18, blood pressure 153/85 and temperature 98.6. GENERAL: This is a chronically ill-appearing male patient who appears to be in minimal distress. HEENT: Head is normocephalic. Nose and throat are clear. NECK: Supple. LUNGS: Clear. HEART: ____. ABDOMEN: Soft, bowel sounds present. There is slight distention of the abdomen, but no tenderness. EXTREMITIES: Lower extremities demonstrate palpable distal pulses. He has 3+ edema of both the lower extremities more so on the right than the left. He has newly circumferential ulceration involving the right leg. There is a mix of granulation fibrin that does not overtly appear infected at this time, although there is certainly a little bit of odor. NEUROLOGIC: The patient is alert and oriented and appropriate. LABORATORY DATA: Include sodium 137, potassium is 3.8, chloride is 105, CO2 of 28, BUN 8, creatinine 0.7, glucose of 91 and albumin is 2.8. INR is 1.2. White blood cell count 3.7 and hemoglobin 9.0. CLINICAL IMPRESSION: 1. Venous type ulceration of the right lower extremity. 2. Chronic pain. 3. History of recurring cellulitis of the right lower extremity. 4. Chest pain being evaluated by Cardiology. RECOMMENDATIONS: At this point in time, the patient has been seen by Infectious Disease. He has been started on intravenous antibiotic therapy. We will recommend topical gentamicin ointment to the open areas of his leg followed by Adaptic followed by SUZI, Whitley and Serafin wrap. He would benefit from aggressive compression as I think would result in better wound healing. He, however, is reluctant or refuses to allow this due to concerns of pain. He would benefit from lymphedema therapy, but typically has refused this in the past and is not willing to consider it now. At this point in time, we will continue with local care. We will recommend elevation aggressively to reduce swelling in the leg. I do not feel that without adequate compression and edema control that these [facility] [address] [place] [address] CONSULTATION Name: MARIA ELENA SANTOS Room #: 209-P [facility] IN M.R.#: [id number] Admission: 06/19/18 Attend Phys: Jeevan Catalan MD Discharge: Date of : 59 Report #: [id number] areas will heal. I think otherwise he has good potential for healing. I appreciate being asked to see him in consultation. <ELECTRONICALLY SIGNED> By: Cassius Fang MD 06/21/18 0743 [id number] Cassius Fang MD /nt
[~2018-06-19 07:11] MED LIST changes: +MOBIC15 MG PO
[2018-06-19 17:45] VITALS: BP 136/75
[2018-06-19 19:35] VITALS: BP 164/81
[2018-06-19] MEDS ORDERED: MIRALAX17 GM PO (20:08)
[2018-06-19] MEDS ORDERED: OXYCONTIN20 M1 PO (21:22)
[2018-06-20] VITALS: BP 159/84
[2018-06-20 03:33] LABS: CALCIUM 8.1 mg/dL (8.5-10.1); CREATININE 0.7 mg/dL (0.7-1.3); POTASSIUM 3.8 mmol/L (3.5-5.1)
[2018-06-20 04:20] VITALS: BP 160/81
[2018-06-20 05:33] LABS: HEMATOCRIT 27.6 % (42.0-52.0); MCH 24.6 pg (26.0-34.0); MCHC 32.7 g/dL (28.0-37.0); MCV 75.5 fL (80.0-100.0); RBC 3.65 mil/uL (4.50-6.00); RDW 15.7 % (10.5-14.5); WBC 3.7 thou/uL (4.0-11.0)
[2018-06-20 07:46] VITALS: BP 161/89
[2018-06-20 11:20] VITALS: BP 153/85
[2018-06-20 20:12] VITALS: BP 133/58
[2018-06-21] VITALS (7 sets, daily range): BP systolic 116–162; BP diastolic 54–78
[2018-06-21 03:46] LABS: CALCIUM 8.2 mg/dL (8.5-10.1); CREATININE 0.8 mg/dL (0.7-1.3); POTASSIUM 3.8 mmol/L (3.5-5.1)
[2018-06-21 03:56] LABS: BASOPHILS 0.8 % (0.0-2.0); EOSINOPHILS 3.6 % (0.0-3.0); HEMATOCRIT 27.6 % (42.0-52.0); HEMOGLOBIN 9.2 gm/dL (14.0-18.0); LYMPHOCYTES 32.4 % (24.0-44.0); MCHC 33.4 g/dL (28.0-37.0); MONOCYTES 10.4 % (1.0-8.0); PLATELET COUNT 202 thou/uL (150-400); POLYS 52.8 % (36.0-66.0); RBC 3.68 mil/uL (4.50-6.00); RDW 15.6 % (10.5-14.5); WBC 3.9 thou/uL (4.0-11.0)
== END 2018-06-21 18:00 | disposition home or self-care (01) | DRG 313 ==
LOC: HYPER 07:11 → 2N 17:06
PROVIDERS: Hospitalist
PROC: B54NZZA Ultrasonography of Left Upper Extremity Veins, Guidance (ICD-10-PCS; principal; 2018-06-20)
PROC: 05HY33Z Insertion of Infusion Device into Upper Vein, Percutaneous Approach (ICD-10-PCS; principal; 2018-06-20)
DX: R07.89 Other chest pain (principal); L03.115 Cellulitis of right lower limb; I10 Essential (primary) hypertension; I73.9 Peripheral vascular disease, unspecified; K21.9 Gastro-esophageal reflux disease without esophagitis; G62.9 Polyneuropathy, unspecified; I87.2 Venous insufficiency (chronic) (peripheral); E88.09 Other disorders of plasma-protein metabolism, not elsewhere classified; G89.29 Other chronic pain; G47.33 Obstructive sleep apnea (adult) (pediatric); I49.3 Ventricular premature depolarization; B96.5 Pseudomonas (aeruginosa) (mallei) (pseudomallei) as the cause of diseases classified elsewhere; Z16.24 Resistance to multiple antibiotics; D64.9 Anemia, unspecified; M06.9 Rheumatoid arthritis, unspecified; I89.0 Lymphedema, not elsewhere classified; M19.90 Unspecified osteoarthritis, unspecified site; M10.9 Gout, unspecified; E66.9 Obesity, unspecified; Z68.32 Body mass index [BMI] 32.0-32.9, adult; Z86.14 Personal history of Methicillin resistant Staphylococcus aureus infection; Z79.899 Other long term (current) drug therapy; Z88.1 Allergy status to other antibiotic agents; Z88.0 Allergy status to penicillin; Z88.8 Allergy status to other drugs, medicaments and biological substances; Z23 Encounter for immunization
CPT/HCPCS: 10081; 10797; 27000

== ENCOUNTER → 2018-07-17 | Outpatient (CLI) | payer BC, OTHER | LOC: HYPER 06:57 | DX: E11.622 Type 2 diabetes mellitus with other skin ulcer (principal); I87.311 Chronic venous hypertension (idiopathic) with ulcer of right lower extremity; L97.812 Non-pressure chronic ulcer of other part of right lower leg with fat layer exposed; L84 Corns and callosities; E11.42 Type 2 diabetes mellitus with diabetic polyneuropathy; E78.5 Hyperlipidemia, unspecified; G89.4 Chronic pain syndrome; I89.0 Lymphedema, not elsewhere classified; I25.10 Atherosclerotic heart disease of native coronary artery without angina pectoris; K21.9 Gastro-esophageal reflux disease without esophagitis; K74.60 Unspecified cirrhosis of liver; M10.9 Gout, unspecified; M06.9 Rheumatoid arthritis, unspecified ==

== ENCOUNTER → 2018-08-08 | Outpatient (CLI) | payer BC, OTHER | LOC: HYPER 06:42 | DX: E11.622 Type 2 diabetes mellitus with other skin ulcer (principal); I87.311 Chronic venous hypertension (idiopathic) with ulcer of right lower extremity; L97.812 Non-pressure chronic ulcer of other part of right lower leg with fat layer exposed; L84 Corns and callosities; E11.42 Type 2 diabetes mellitus with diabetic polyneuropathy; E78.5 Hyperlipidemia, unspecified; I89.0 Lymphedema, not elsewhere classified; I25.10 Atherosclerotic heart disease of native coronary artery without angina pectoris; G89.4 Chronic pain syndrome; K74.60 Unspecified cirrhosis of liver; K50.90 Crohn's disease, unspecified, without complications; K21.9 Gastro-esophageal reflux disease without esophagitis; M06.9 Rheumatoid arthritis, unspecified; M10.9 Gout, unspecified ==

== ENCOUNTER → 2018-09-11 | Outpatient (CLI) | payer BC, OTHER | LOC: HYPER 08-28 07:31 | DX: E11.622 Type 2 diabetes mellitus with other skin ulcer (principal); I87.311 Chronic venous hypertension (idiopathic) with ulcer of right lower extremity; L97.812 Non-pressure chronic ulcer of other part of right lower leg with fat layer exposed; L84 Corns and callosities; E11.42 Type 2 diabetes mellitus with diabetic polyneuropathy; E78.5 Hyperlipidemia, unspecified; G89.4 Chronic pain syndrome; I89.0 Lymphedema, not elsewhere classified; I25.10 Atherosclerotic heart disease of native coronary artery without angina pectoris; K74.60 Unspecified cirrhosis of liver; K21.9 Gastro-esophageal reflux disease without esophagitis; M06.9 Rheumatoid arthritis, unspecified; M10.9 Gout, unspecified ==

== ENCOUNTER → 2018-09-27 | Outpatient (CLI) | payer BC, OTHER | LOC: HYPER 06:37 | DX: E11.622 Type 2 diabetes mellitus with other skin ulcer (principal); I87.311 Chronic venous hypertension (idiopathic) with ulcer of right lower extremity; L97.812 Non-pressure chronic ulcer of other part of right lower leg with fat layer exposed; I89.0 Lymphedema, not elsewhere classified; E11.42 Type 2 diabetes mellitus with diabetic polyneuropathy; E78.5 Hyperlipidemia, unspecified; G89.4 Chronic pain syndrome; I25.10 Atherosclerotic heart disease of native coronary artery without angina pectoris; K74.60 Unspecified cirrhosis of liver; K21.9 Gastro-esophageal reflux disease without esophagitis; M06.9 Rheumatoid arthritis, unspecified; M10.9 Gout, unspecified ==

== ENCOUNTER → 2018-10-16 | Outpatient (CLI) | payer BC, OTHER | LOC: HYPER 07:02 | DX: E11.622 Type 2 diabetes mellitus with other skin ulcer (principal); I87.311 Chronic venous hypertension (idiopathic) with ulcer of right lower extremity; L97.812 Non-pressure chronic ulcer of other part of right lower leg with fat layer exposed; L84 Corns and callosities; I89.0 Lymphedema, not elsewhere classified; E11.42 Type 2 diabetes mellitus with diabetic polyneuropathy; E78.5 Hyperlipidemia, unspecified; G89.4 Chronic pain syndrome; I25.10 Atherosclerotic heart disease of native coronary artery without angina pectoris; K74.60 Unspecified cirrhosis of liver; K21.9 Gastro-esophageal reflux disease without esophagitis; M10.9 Gout, unspecified; M06.9 Rheumatoid arthritis, unspecified ==

== ENCOUNTER → 2018-10-31 | Outpatient (CLI) | payer BC, OTHER | LOC: HYPER 07:00 | DX: E11.622 Type 2 diabetes mellitus with other skin ulcer (principal); I87.311 Chronic venous hypertension (idiopathic) with ulcer of right lower extremity; L97.812 Non-pressure chronic ulcer of other part of right lower leg with fat layer exposed; I89.0 Lymphedema, not elsewhere classified; L03.115 Cellulitis of right lower limb; E11.42 Type 2 diabetes mellitus with diabetic polyneuropathy; E78.5 Hyperlipidemia, unspecified; G89.4 Chronic pain syndrome; I25.10 Atherosclerotic heart disease of native coronary artery without angina pectoris; K74.60 Unspecified cirrhosis of liver; K21.9 Gastro-esophageal reflux disease without esophagitis; M06.9 Rheumatoid arthritis, unspecified; M10.9 Gout, unspecified ==

== ENCOUNTER → 2018-11-28 | Outpatient (CLI) | payer BC, OTHER | LOC: HYPER 06:18 | DX: E11.622 Type 2 diabetes mellitus with other skin ulcer (principal); I87.311 Chronic venous hypertension (idiopathic) with ulcer of right lower extremity; L97.812 Non-pressure chronic ulcer of other part of right lower leg with fat layer exposed; I89.0 Lymphedema, not elsewhere classified; I10 Essential (primary) hypertension; E11.42 Type 2 diabetes mellitus with diabetic polyneuropathy; L03.115 Cellulitis of right lower limb; L84 Corns and callosities; I25.10 Atherosclerotic heart disease of native coronary artery without angina pectoris; E78.5 Hyperlipidemia, unspecified; G89.28 Other chronic postprocedural pain; M19.90 Unspecified osteoarthritis, unspecified site; M10.9 Gout, unspecified; M06.9 Rheumatoid arthritis, unspecified ==

== ENCOUNTER → 2019-05-03 | Outpatient (CLI) | payer BC, OTHER | LOC: HYPER 01-09 06:39 | DX: E11.622 Type 2 diabetes mellitus with other skin ulcer (principal); I87.311 Chronic venous hypertension (idiopathic) with ulcer of right lower extremity; L97.812 Non-pressure chronic ulcer of other part of right lower leg with fat layer exposed; L03.115 Cellulitis of right lower limb; I89.0 Lymphedema, not elsewhere classified; E11.42 Type 2 diabetes mellitus with diabetic polyneuropathy; E78.5 Hyperlipidemia, unspecified; G89.4 Chronic pain syndrome; I25.10 Atherosclerotic heart disease of native coronary artery without angina pectoris; K50.90 Crohn's disease, unspecified, without complications; K74.60 Unspecified cirrhosis of liver; K21.9 Gastro-esophageal reflux disease without esophagitis; M06.9 Rheumatoid arthritis, unspecified; M10.9 Gout, unspecified ==

== ENCOUNTER → 2019-06-18 | Outpatient (CLI) | payer BC, OTHER | LOC: HYPER 14:21 | DX: E11.622 Type 2 diabetes mellitus with other skin ulcer (principal); I87.311 Chronic venous hypertension (idiopathic) with ulcer of right lower extremity; L97.812 Non-pressure chronic ulcer of other part of right lower leg with fat layer exposed; L03.115 Cellulitis of right lower limb; I89.0 Lymphedema, not elsewhere classified; E11.42 Type 2 diabetes mellitus with diabetic polyneuropathy; E78.5 Hyperlipidemia, unspecified; G89.4 Chronic pain syndrome; I25.10 Atherosclerotic heart disease of native coronary artery without angina pectoris; K50.90 Crohn's disease, unspecified, without complications; K74.60 Unspecified cirrhosis of liver; K21.9 Gastro-esophageal reflux disease without esophagitis; M06.9 Rheumatoid arthritis, unspecified; M10.9 Gout, unspecified ==

== ENCOUNTER → 2019-06-18 | Outpatient (CLI) | payer BC, OTHER | LOC: ULTRA 16:21 | DX: I89.0 Lymphedema, not elsewhere classified (principal); I87.311 Chronic venous hypertension (idiopathic) with ulcer of right lower extremity ==

== ENCOUNTER → 2019-07-18 | Outpatient (CLI) | payer OTHER | LOC: HYPER 12:06 | DX: I87.311 Chronic venous hypertension (idiopathic) with ulcer of right lower extremity (principal); L97.812 Non-pressure chronic ulcer of other part of right lower leg with fat layer exposed; I89.0 Lymphedema, not elsewhere classified; L84 Corns and callosities; I25.10 Atherosclerotic heart disease of native coronary artery without angina pectoris; E78.5 Hyperlipidemia, unspecified; G62.9 Polyneuropathy, unspecified; G89.4 Chronic pain syndrome; M06.9 Rheumatoid arthritis, unspecified; K50.90 Crohn's disease, unspecified, without complications ==

== ENCOUNTER → 2019-08-13 | Outpatient (CLI) | payer OTHER | LOC: HYPER 13:09 | DX: E11.622 Type 2 diabetes mellitus with other skin ulcer (principal); I87.311 Chronic venous hypertension (idiopathic) with ulcer of right lower extremity; L97.812 Non-pressure chronic ulcer of other part of right lower leg with fat layer exposed; L84 Corns and callosities; I89.0 Lymphedema, not elsewhere classified; E11.42 Type 2 diabetes mellitus with diabetic polyneuropathy; E78.5 Hyperlipidemia, unspecified; I25.10 Atherosclerotic heart disease of native coronary artery without angina pectoris; G89.4 Chronic pain syndrome; R60.0 Localized edema; K50.90 Crohn's disease, unspecified, without complications; K74.60 Unspecified cirrhosis of liver; K21.9 Gastro-esophageal reflux disease without esophagitis; M06.9 Rheumatoid arthritis, unspecified; M10.9 Gout, unspecified ==

== ENCOUNTER → 2019-09-10 | Outpatient (CLI) | payer OTHER | LOC: HYPER 11:31 | DX: I87.311 Chronic venous hypertension (idiopathic) with ulcer of right lower extremity (principal); L97.812 Non-pressure chronic ulcer of other part of right lower leg with fat layer exposed; I89.0 Lymphedema, not elsewhere classified; E11.42 Type 2 diabetes mellitus with diabetic polyneuropathy; I25.10 Atherosclerotic heart disease of native coronary artery without angina pectoris; E78.5 Hyperlipidemia, unspecified; G89.4 Chronic pain syndrome; K50.90 Crohn's disease, unspecified, without complications; M10.9 Gout, unspecified; M06.9 Rheumatoid arthritis, unspecified; Z86.14 Personal history of Methicillin resistant Staphylococcus aureus infection ==

== ENCOUNTER → 2019-10-08 | Outpatient (CLI) | payer OTHER | LOC: HYPER 10:40 | DX: E11.622 Type 2 diabetes mellitus with other skin ulcer (principal); I87.311 Chronic venous hypertension (idiopathic) with ulcer of right lower extremity; L97.812 Non-pressure chronic ulcer of other part of right lower leg with fat layer exposed; L84 Corns and callosities; I89.0 Lymphedema, not elsewhere classified; I87.2 Venous insufficiency (chronic) (peripheral); E11.42 Type 2 diabetes mellitus with diabetic polyneuropathy; E78.5 Hyperlipidemia, unspecified; I25.10 Atherosclerotic heart disease of native coronary artery without angina pectoris; G89.4 Chronic pain syndrome; M06.9 Rheumatoid arthritis, unspecified; M10.9 Gout, unspecified; K50.90 Crohn's disease, unspecified, without complications; K74.60 Unspecified cirrhosis of liver; K21.9 Gastro-esophageal reflux disease without esophagitis ==

== ENCOUNTER → 2019-10-29 | Outpatient (CLI) | payer OTHER | LOC: HYPER 10:52 | DX: E11.622 Type 2 diabetes mellitus with other skin ulcer (principal); I87.311 Chronic venous hypertension (idiopathic) with ulcer of right lower extremity; L97.812 Non-pressure chronic ulcer of other part of right lower leg with fat layer exposed; L84 Corns and callosities; I89.0 Lymphedema, not elsewhere classified; E11.42 Type 2 diabetes mellitus with diabetic polyneuropathy; E78.5 Hyperlipidemia, unspecified; G89.4 Chronic pain syndrome; I25.10 Atherosclerotic heart disease of native coronary artery without angina pectoris; M06.9 Rheumatoid arthritis, unspecified; M19.90 Unspecified osteoarthritis, unspecified site; M10.9 Gout, unspecified; K50.90 Crohn's disease, unspecified, without complications; K74.60 Unspecified cirrhosis of liver; K21.9 Gastro-esophageal reflux disease without esophagitis ==

== ENCOUNTER → 2019-11-26 | Outpatient (CLI) | payer OTHER | LOC: SJCVC 16:03 | PROVIDERS: ATTEND Internal Medicine Cardiovascular Disease | DX: I10 Essential (primary) hypertension (principal); I49.9 Cardiac arrhythmia, unspecified; E78.5 Hyperlipidemia, unspecified ==

== ENCOUNTER → 2019-12-11 | Outpatient (CLI) | payer OTHER | LOC: HYPER 15:53 | DX: I87.311 Chronic venous hypertension (idiopathic) with ulcer of right lower extremity (principal); E11.622 Type 2 diabetes mellitus with other skin ulcer; L97.812 Non-pressure chronic ulcer of other part of right lower leg with fat layer exposed; I89.0 Lymphedema, not elsewhere classified; E11.42 Type 2 diabetes mellitus with diabetic polyneuropathy; E78.5 Hyperlipidemia, unspecified; I25.10 Atherosclerotic heart disease of native coronary artery without angina pectoris; K50.90 Crohn's disease, unspecified, without complications; H53.8 Other visual disturbances; G89.4 Chronic pain syndrome; M06.9 Rheumatoid arthritis, unspecified; M10.9 Gout, unspecified; M19.90 Unspecified osteoarthritis, unspecified site ==

== ENCOUNTER → 2020-01-08 | Outpatient (CLI) | payer OTHER | LOC: HYPER 11:27 | PROVIDERS: ATTEND Emergency Medicine | DX: E11.622 Type 2 diabetes mellitus with other skin ulcer (principal); I87.311 Chronic venous hypertension (idiopathic) with ulcer of right lower extremity; L97.812 Non-pressure chronic ulcer of other part of right lower leg with fat layer exposed; L84 Corns and callosities; I89.0 Lymphedema, not elsewhere classified; E11.42 Type 2 diabetes mellitus with diabetic polyneuropathy; E78.5 Hyperlipidemia, unspecified; G89.4 Chronic pain syndrome; I25.10 Atherosclerotic heart disease of native coronary artery without angina pectoris; I10 Essential (primary) hypertension; K50.90 Crohn's disease, unspecified, without complications; K74.60 Unspecified cirrhosis of liver; K21.9 Gastro-esophageal reflux disease without esophagitis; M06.9 Rheumatoid arthritis, unspecified; M10.9 Gout, unspecified ==

== ENCOUNTER → 2020-02-05 | Outpatient (CLI) | payer OTHER | LOC: HYPER 14:54 | PROVIDERS: ATTEND Emergency Medicine | DX: I87.311 Chronic venous hypertension (idiopathic) with ulcer of right lower extremity (principal); L97.812 Non-pressure chronic ulcer of other part of right lower leg with fat layer exposed; L03.115 Cellulitis of right lower limb; E11.42 Type 2 diabetes mellitus with diabetic polyneuropathy; I89.0 Lymphedema, not elsewhere classified; L84 Corns and callosities; I25.10 Atherosclerotic heart disease of native coronary artery without angina pectoris; E78.5 Hyperlipidemia, unspecified; G89.4 Chronic pain syndrome; M06.9 Rheumatoid arthritis, unspecified; M10.9 Gout, unspecified; Z86.14 Personal history of Methicillin resistant Staphylococcus aureus infection ==

== ENCOUNTER → 2020-05-22 | Outpatient (CLI) | payer OTHER | LOC: HYPER 15:00 | PROVIDERS: ATTEND Emergency Medicine | DX: I87.311 Chronic venous hypertension (idiopathic) with ulcer of right lower extremity (principal); E11.622 Type 2 diabetes mellitus with other skin ulcer; L97.812 Non-pressure chronic ulcer of other part of right lower leg with fat layer exposed; L97.312 Non-pressure chronic ulcer of right ankle with fat layer exposed; I89.0 Lymphedema, not elsewhere classified; L03.115 Cellulitis of right lower limb; E11.40 Type 2 diabetes mellitus with diabetic neuropathy, unspecified; L84 Corns and callosities; I25.10 Atherosclerotic heart disease of native coronary artery without angina pectoris; E78.5 Hyperlipidemia, unspecified; G89.4 Chronic pain syndrome; M06.9 Rheumatoid arthritis, unspecified; K50.90 Crohn's disease, unspecified, without complications; M10.9 Gout, unspecified; Z86.14 Personal history of Methicillin resistant Staphylococcus aureus infection ==